=== PATIENT | female | born 1950 | race Caucasian/White ===

== ENCOUNTER 2017-05-17 08:57 | Day surgery (SDC) | payer OTHER ==
[2017-05-17] MEDS ORDERED: MIDAZOLAM 2 MG/2 ML VIAL IVP ONE (08:59)
[2017-05-17] MEDS ORDERED: fentaNYL 100 MCG/2 ML INJ IVP ONE (08:59)
[2017-05-17] MEDS ORDERED: BENZOCAINE UNIT DOSE SPRAY HURRICAINE MM ONE (08:59)
[2017-05-17] MEDS ORDERED: NS 500 ML IV ONE (08:59)
[2017-05-17] MEDS ORDERED: PROPOFOL 200 MG/20 ML VIAL ONE ×2 (09:51→10:18)
[2017-05-17] MEDS ORDERED: LIDOCAINE 1% 5 ML SDV ONE (09:51)
--- NOTE | 2017-05-17 09:54 | PDHPUP ---
History & Physical Update H&P update statement: This history and physical update is based on an assessment of the patient which was completed after admission or registration (within 24 hours), but prior to the surgery/procedure. H&P update: H&P reviewed & patient examined, no change in patient's condition since H&P completed
--- NOTE | 2017-05-17 10:42 | PDANEPAE ---
ANE Past Medical History - Pulmonary History Hx Oxygen in Use at Home: No Hx Sleep Apnea: No ANE Review of Systems Review of Systems: ANE Patient History - Allergies Allergies/Adverse Reactions: No Known Allergies Allergy (Unverified 07/30/12 15:15) - Home Medications Home Medications: Arnica Lg 05/17/17 [Last Taken Unknown] Estrace 05/17/17 [Last Taken Unknown] Vitamin D3 05/17/17 [Last Taken Unknown] - Smoking Hx Smoking Status: Former smoker ANE Labs/Vital Signs - Vital Signs Height: 155 cm Weight: 50.8 kg ANE Physical Exam - Airway Neck exam: FROM Mallampati Score: Class 2 Mouth exam: normal dental/mouth exam - Pulmonary Pulmonary: no respiratory distress - Cardiovascular Cardiovascular: regular rate and rhythym - ASA Status ASA Status: II ANE Anesthesia Plan Total IV Anesthesia: Yes Urgent/Emergent Case: Mohini nolan completed preop but documented later for safe timely pt care
--- NOTE | 2017-05-17 10:42 | POSTANESTH ---
Post Anesthetic Evaluation Cardiovascular Status: Normal, Stable Respiratory Status: Normal, Stable Level of Consciousness/Mental Status: Can Participate in Eval Pain Control: Adequate, Prn Tx Ordered Nausea/Vomiting Control: Adequate, Prn Tx Ordered Complications Possibly Related to Anesthesia: None Noted
--- NOTE | 2017-05-17 13:48 | ECHO ---
[email or web address] [address] [address] Main: [phone] Fax: Transesophageal Echocardiography Name: EMERSON LIMA MR#: [id number] Study Date: 05/17/2017 Study Time: 09:57 AM Date of : 1950 Age: 66 year(s) Height: ( ) Weight: ( ) BSA: Gender: Female Examination: SHAYLA Indication: Image Quality: Contrast: Requested by: Supa Stevenson Heart Rate: Rhythm: BP: / Procedure Staff Professor Of German: Anu Madrigal Reading Physician: Supa Stevenson SHAYLA Exam Details Measurements: Chambers Valvular Assessment AV/MV Valvular Assessment TV/PV Normal Normal Normal Name Value Range Name Value Range Name Value Range Additional Measurements: Additional Vessels Name Value Ao Ascendin.7 cm Findings: Left Ventricle: Normal size left ventricle. Normal global systolic LV function. Normal global systolic LV function. Right Ventricle: Normal size right ventricle. Normal RV function. Left Atrium: The left atrium is normal in size. An agitated saline study was performed and was negative for intracardiac shunting. No thrombus is noted in the left atrium. Left Atrial Appendage: No thrombus in left appendage. Right Atrium: The right atrium is normal in size. An agitated saline study was performed and was negative for Patient: EMERSON LIMA Study Date: 05/17/2017 Page 1 of 2 09:57 AM intracardiac shunting. 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 Mitral Valve: The mitral valve is normal in appearance. Trivial mitral valve regurgitation. Aortic Valve: The aortic valve is tri-leaflet and functions normally. There is no aortic valve regurgitation. Tricuspid Valve: The tricuspid valve appears normal. Trivial tricuspid valve regurgitation. Pulmonic Valve: The pulmonic valve is normal in appearance and function. Trivial pulmonic valve regurgitation. Aorta: No dilatation of the aorta. Pericardium: No pericardial effusion. l1n (No Signature Object) Patient: EMERSON LIMA Study Date: 05/17/2017 Page 2 of 2 09:57 AM [id number]
--- NOTE | 2017-05-17 15:09 | GPN ---
[f rep st] PROCEDURE NOTE DATE OF PROCEDURE: 05/17/2017 PROCEDURE PERFORMED: Transesophageal echocardiogram. INDICATION FOR PROCEDURE: Evidence of possible echodensity on the posterior mitral valve leaflet see n on transthoracic echocardiogram. SHAYLA has been ordered for closer evaluation of mitral valve. PROCEDURE: Patient was consented for both SHAYLA and anesthesia. After informed consent was obtained, patient underwent sedation with propofol. A bite block was in place prior to initiation of sedation. Once appropriate level of anesthesia was achieved, SHAYLA probe was passed without incident. SHAYLA probe was used to take images of all cardiac structures. Focus was on the mitral valve primarily . Mitral valve demonstrated normal mitral valvular function. No evidence of mitral valve prolapse. Trace mitral regurgitation. Please see complete echocardiogram report for full details. Patient tolerated the procedure well. SHAYLA probe was removed without complications. Patient awoke from anesthesia. Images were reviewed with patient and her . All questions wer e answered. PLAN: 1. Patient will be discharged home. 2. Patient is scheduled to follow up with me next week on Tuesday, May 23, 2017. /[id number]/MODL
== END 2017-05-17 11:50 | disposition home or self-care (01) ==
LOC: FCATH 08:57
PROVIDERS: ATTEND Internal Medicine Cardiovascular Disease
PROC: B246ZZ4 Ultrasonography of Right and Left Heart, Transesophageal (ICD-10-PCS; principal; 2017-05-17)
DX: R94.39 Abnormal result of other cardiovascular function study (principal)
CPT/HCPCS: J2704

== ENCOUNTER → 2017-11-21 | Outpatient (CLI) | payer OTHER | LOC: BMCIMAGING 12:57 | PROVIDERS: ATTEND Obstetrics & Gynecology | DX: Z12.31 Encounter for screening mammogram for malignant neoplasm of breast (principal) ==

== ENCOUNTER 2018-12-11 11:42 | Emergency (ER) | payer OTHER ==
[2018-12-11 11:56] VITALS: BP 159/86
== END 2018-12-11 12:48 | disposition left against medical advice (07) ==
DX: Z53.21 Procedure and treatment not carried out due to patient leaving prior to being seen by health care provider (principal)

== ENCOUNTER → 2018-12-14 | Outpatient (CLI) | payer OTHER | LOC: BMCIMAGING 08:43 | PROVIDERS: ATTEND Internal Medicine | DX: R10.11 Right upper quadrant pain (principal) ==

== ENCOUNTER → 2018-12-17 | Outpatient (CLI) | payer OTHER | LOC: FIMAGING 18:31 | PROVIDERS: ATTEND Internal Medicine | DX: K83.8 Other specified diseases of biliary tract (principal); M43.8X4 Other specified deforming dorsopathies, thoracic region ==

== ENCOUNTER → 2019-02-07 | Outpatient (CLI) | payer OTHER | LOC: BMCIMAGING 15:02 ==